=== PATIENT | female | born 1955 | race Caucasian/White ===

== ENCOUNTER 2024-04-09 16:30 | Emergency (ER) | payer OTHER ==
[2024-04-09 16:59] VITALS: BP 114/74; PULSE 87; RESP 16; TEMP 97.7; BMI 23.3
[2024-04-09 18:58] LABS: BASO % 1.4 % (0-2.0); EOS % 0.7 % (0-4.5); HEMATOCRIT 39.5 % (32.4-45.2); HEMOGLOBIN 13.6 GM/dL (10.7-15.3); LYMPH % 29.5 % (8-40); MCH 29.9 pg (25.7-33.7); MCHC 34.5 g/dl (32.0-36.0); MEAN CELL VOLUME 86.6 fl (80-96); MEAN PLT VOLUME 7.1 fl (7.5-11.1); NEUT % 61.4 % (42.8-82.8); PLATELET COUNT 334 10^3/uL (134-434); RBC 4.57 M/mm3 (3.60-5.2); RDW 13.2 % (11.6-15.6)
[2024-04-09 19:32] LABS: POTASSIUM 3.9 mmol/L (3.5-5.1)
[2024-04-09 19:34] LABS: CALCIUM 9.2 mg/dL (8.5-10.1)
[2024-04-09 19:35] LABS: ALBUMIN 2.6 g/dl (3.4-5.0); BLOOD UREA NITROGEN 11.1 mg/dL (7-18); MAGNESIUM 1.9 mg/dL (1.8-2.4)
[2024-04-09 19:38] LABS: CREATININE 0.6 mg/dL (0.55-1.3); PHOSPHOROUS 3.6 mg/dL (2.5-4.9)
[2024-04-09 19:39] LABS: BILIRUBIN,TOTAL 0.2 mg/dL (0.2-1); TOT PROT 6.3 g/dl (6.4-8.2)
[2024-04-09 19:52] LABS: EPI CELLS 4 /uL (0-25.1); HYALINE CASTS 1 /uL (0-3.1); PH,URINE 5.5 (5.0-8.0); URINE APPEARANCE CLEAR; URINE BACTERIA 3 /uL (0-1359); URINE BILIRUBIN NEGATIVE (NEGATIVE); URINE COLOR YELLOW; URINE GLUCOSE (UA) NEGATIVE (NEGATIVE); URINE KETONE NEGATIVE (NEGATIVE); URINE LEUK ESTERASE NEGATIVE (NEGATIVE); URINE NITRITE NEGATIVE (NEGATIVE); URINE PROTEIN 3+ (NEGATIVE); URINE RBC 20 /uL (0-23.9); URINE UROBILINOGEN 0.2 mg/dL (0.2-1.0); URINE WBC 16 /uL (0-25.8)
== END 2024-04-09 20:41 | disposition home or self-care (01) ==
LOC: JER 16:30
DX: M54.50 Low back pain, unspecified (principal); R25.3 Fasciculation
CPT/HCPCS: 36415; 80053; 81003; 82550; 83735; 84100; 85025; 86803; 87086; 99283-25